=== PATIENT | male | born 1980 | race Caucasian/White ===

== ENCOUNTER 2016-10-27 02:08 | Emergency (ER) | payer MEDICAID, OTHER ==
[~2016-10-27] VITALS: Ht 175.3 cm; Wt 122.0 kg
[2016-10-27] MEDS ORDERED: KETOROLAC 60MG/2ML VIAL IM ONE (06:30)
[2016-10-27] MEDS ORDERED: BACITRACIN ZINC OINT UDPKT TOP ONE (06:30)
[2016-10-27] MEDS ORDERED: TETANUS, DIPHTHERIA, PERTUSSIS VAC/PF 0.5ML (>7YR OLD) IM ONE (06:30)
[2016-10-27] MEDS ORDERED: LIDOCAINE HCL 1% 20ML VIAL (Pyxis) INJ MC ONE (07:30)
[2016-10-27 08:50] VITALS: BP 128/72
== END 2016-10-27 08:51 | disposition home or self-care (01) ==
LOC: ER 02:08
DX: S91.204A Unspecified open wound of right lesser toe(s) with damage to nail, initial encounter (principal); M79.671 Pain in right foot; W50.0XXA Accidental hit or strike by another person, initial encounter; Y93.89 Activity, other specified; Y92.098 Other place in other non-institutional residence as the place of occurrence of the external cause; Z87.891 Personal history of nicotine dependence; Z23 Encounter for immunization
CPT/HCPCS: 11730; 73630; 90471; 90715; 96372; 99284; A4217; J1885; J3490; Z7610; 11750